=== PATIENT | female | born 1995 | race Caucasian/White ===

== ENCOUNTER 2021-10-16 17:10 | Inpatient (IN) ==
[~2021-10-16 17:10] MED LIST: *HR* Nalbuphine 10 MG/ML AMPUL IV PRN; Azithromycin 500 MG in 0.9 % Sodium Chloride 250 ML IVPB PRN; Famotidine 20 MG/2 ML VIAL IVP PRN; Lidocaine 1% 20 ML MDV INFILT PRN; Metoclopramide 10 MG/2 ML VIAL IVP PRN; Naloxone 0.4 MG/ML INJ IVP PRN; Ondansetron 4 MG/2 ML VIAL IVP PRN; Oxytocin 30 UNIT/503 ML BAG IVC SCH; miSOPROStoL 25 MCG TABLET PO PRN
[2021-10-16] MEDS ORDERED: EPHEDrine 50 MG/ML VIAL IVP PRN (18:04)
[2021-10-16] MEDS ORDERED: Epidural Premix (fent/bupiv) 110 ML EP SCH (18:15)
[2021-10-16 20:58] LABS: Amphetamine Screen,Urine Negative ng/mL (Cutoff=1000); Barbiturate Screen,Urine Negative ng/mL (Cutoff=200); Benzodiazepines Screen,Urine Negative ng/mL (Cutoff=200); Cannabinoid Screen,Urine Negative ng/mL (Cutoff = 50); Cocaine Screen,Urine Negative ng/mL (Cutoff= 300); Opiate Screen,Urine Negative ng/mL (Cutoff=300); Phencyclidine Screen,Urine Negative ng/mL (Cutoff=25)
[2021-10-16 21:01] LABS: Basophils % 0.2 %; Eosinophils # 0.1 K/mcL (0.0-0.6); Eosinophils % 0.9 %; Hematocrit 41.7 % (35.3-44.9); Hemoglobin 14.1 g/dL (11.5-15.4); Immature Granulocytes % 0.6 % (0-4); Lymphocytes % 15.6 %; Mean Corpuscular HGB Conc 33.8 g/dL (31.6-35.5); Mean Corpuscular Hemoglobin 34.1 pg (28.0-33.3); Mean Platelet Volume 9.8 fL (9.4-12.4); Monocytes # 0.8 K/mcL (0.0-1.3); Monocytes % 5.9 %; Neutrophils # 9.7 K/mcL (1.6-8.9); Platelet Count 242 K/mcL (140-400); Red Blood Count 4.13 M/mcL (3.82-4.97); Red Cell Distribution Width 13.8 % (11.5-14.5); Segmented Neutrophils % 76.8 %; White Blood Count 12.7 K/mcL (4.3-11.1)
[2021-10-16 21:24] LABS: Influenza A PCR Negative (Negative); Influenza B PCR Negative (Negative); Resp. Syncytial Virus PCR Negative (Negative)
[2021-10-16 21:25] LABS: SARS-CoV-2 by PCR (In House) Negative (Negative)
[2021-10-17] MEDS: Ringers Solution, Lactated 1,000 ML IVC SCH (01:55)
[2021-10-17] MEDS ORDERED: *HR* HYDROmorphone 2 MG/ML SYRINGE IVP STA (15:09)
[2021-10-17] MEDS ORDERED: Lanolin 7 G OINT...G. TP PRN (16:28)
[2021-10-17] MEDS ORDERED: Ondansetron ODT 4 MG TAB.RAPDIS PO PRN (16:28)
[2021-10-17] MEDS ORDERED: Famotidine 20 MG TABLET PO PRN (16:28)
[2021-10-17] MEDS ORDERED: Ondansetron ODT 4 MG TAB.RAPDIS SL PRN (16:28)
[2021-10-17] MEDS ORDERED: Rho Immune Globulin 1,500 UNIT SYRINGE IM PRN (16:28)
[2021-10-17] MEDS ORDERED: Benzocaine/Menthol 56 GM AEROSOL SPRAY TP PRN (16:28)
[2021-10-17] MEDS ORDERED: OXYTOCIN/RINGERS LACTATE 10 UNIT/166.6 ML BAG IVC ONE (16:28)
[2021-10-17] MEDS ORDERED: *HR* OxyCODONE Immed Rel 5 MG TABLET PO PRN (16:28)
[2021-10-17] MEDS ORDERED: Measles/Mumps/Rubella Vacc 0.5 ML VIAL SQ PRN (16:28)
[2021-10-17] MEDS: Acetaminophen 325 MG TABLET PO SCH (17:11)
[2021-10-17] MEDS: Oxytocin 30 UNIT/503 ML BAG IVC SCH (17:17)
[2021-10-17] MEDS: Ibuprofen 600 MG TABLET PO SCH (20:20)
[2021-10-18] MEDS: Acetaminophen 325 MG TABLET PO SCH ×4 (00:33→20:27)
[2021-10-18] MEDS: Ibuprofen 600 MG TABLET PO SCH ×3 (04:31→20:27)
[2021-10-18 05:43] LABS: Basophils % 0.2 %; Eosinophils # 0.1 K/mcL (0.0-0.6); Eosinophils % 0.7 %; Immature Granulocytes % 0.5 % (0-4); Lymphocytes # 2.4 K/mcL (0.6-4.6); Lymphocytes % 12.4 %; Mean Corpuscular Hemoglobin 33.3 pg (28.0-33.3); Mean Corpuscular Volume 100.9 fL (83.0-100.0); Mean Platelet Volume 9.8 fL (9.4-12.4); Monocytes % 5.4 %; Neutrophils # 15.3 K/mcL (1.6-8.9); Platelet Count 175 K/mcL (140-400); Red Blood Count 3.27 M/mcL (3.82-4.97); Red Cell Distribution Width 13.8 % (11.5-14.5); Segmented Neutrophils % 80.8 %; White Blood Count 18.9 K/mcL (4.3-11.1)
[2021-10-18 05:46] LABS: Hemoglobin 10.9 g/dL (11.5-15.4)
[2021-10-18] MEDS ORDERED: NON-FORMULARY MEDICATION 1 EACH EACH (Prenat 115/Iron Fum/Folic/Dss [Prenatal 19 Tablet] 1 PO SCH (09:00)
[2021-10-18] MEDS: Prenatal Vit/FA 1 EACH TABLET PO SCH (09:01)
[2021-10-18] MEDS: Oxytocin 30 UNIT/503 ML BAG IVC SCH ×5 (14:24→14:28)
[2021-10-18] MEDS: Ringers Solution, Lactated 1,000 ML IVC SCH (14:25)
[2021-10-19] MEDS: Acetaminophen 325 MG TABLET PO SCH ×3 (04:58→19:01)
[2021-10-19] MEDS: Ibuprofen 600 MG TABLET PO SCH ×3 (04:58→19:02)
[2021-10-19] MEDS: Prenatal Vit/FA 1 EACH TABLET PO SCH (13:10)
[2021-10-19 19:58] VITALS: O2SAT 99
[2021-10-20] MEDS: Acetaminophen 325 MG TABLET PO SCH ×2 (01:44→07:51)
[2021-10-20] MEDS: Ibuprofen 600 MG TABLET PO SCH ×2 (01:44→07:51)
[2021-10-20 07:31] VITALS: BP 117/65; PULSE 65; TEMP 98.1
[2021-10-20] MEDS: Prenatal Vit/FA 1 EACH TABLET PO SCH (07:52)
== END 2021-10-20 13:04 | disposition home or self-care (01) | DRG 806 ==
LOC: 1NENULAB → 1NENUOBS 10-17 18:00
PROVIDERS: ADMIT Registered Nurse; ATTEND Registered Nurse